=== PATIENT | female | born 1965 | race Caucasian/White ===

== ENCOUNTER 2019-04-13 08:29 | Day surgery (SDC) | payer MEDICARE ==
[2019-04-12 09:27] VITALS: BMI 31.9
[~2019-04-13 08:29] MED LIST: DEXAMETHASONE SOD PHOSPHATE 10 MG/ML 1 ML VIAL IV ONE; FAMOTIDINE 20 MG/2 ML VIAL IV ONE; HYDROmorphone 0.5 MG/0.5 ML SYRINGE IVP PRN; LACTATED RINGERS 1,000 ML IV SCH; LIDOCAINE 1% 20 ML VIAL (10MG/ML) FOR IV START INTRADERMA PRN; MIDAZOLAM 2 MG/2 ML VIAL IV PRN; ONDANSETRON 4 MG/2 ML VIAL IVP ONE; SCOPOLAMINE 1.5MG/72HR PATCH TRANSDERM ONE
[2019-04-13 09:53] LABS: Glucose,Whole Blood 103 mg/dL (75-99)
[2019-04-13] MEDS ORDERED: PROPOFOL 10 MG/ML 20 ML VIAL IV ONE (11:00)
[2019-04-13] MEDS ORDERED: MIDAZOLAM 2 MG/2 ML VIAL ONE (11:00)
[2019-04-13] MEDS ORDERED: LIDOCAINE 1% INJ 10MG/ML (20 ML MDV) ONE (11:00)
[2019-04-13] MEDS ORDERED: fentaNYL (PF) 50 MCG/ML 2 ML AMP ONE (11:00)
[2019-04-13] MEDS ORDERED: OFLOXACIN 0.3% OPHTH DROPS 5 ML BOTTLE BOTH EARS ONE (11:17)
[2019-04-13] MEDS ORDERED: LACTATED RINGERS 1,000 ML IV ONE (11:32)
--- NOTE | 2019-04-13 11:32 | P.OP ---
Date of Procedure: 04/20/19 Preoperative Diagnosis: Bilateral chronic otitis media Postoperative Diagnosis: Same Procedure(s) Performed: Left ventilation tube placement Right ventilation tube removal and replacement Anesthesia: VANDANA Surgeon: Gus Hager Estimated Blood Loss (ml): 0 Pathology: none sent Condition: stable Disposition: PACU Indications for Procedure: This is a 33-year-old black female whose had difficulties with otitis media for many years. She has history of ventilation tube placement with a right ventilation tube which is retained although she's had some issues with drainage left ear has had chronic middle ear effusion Operative Findings: Mucoid middle ear effusion on the left with extruding ventilation tube on the right Description of Procedure: The patient was brought in the operative suite and placed in a supine position. The patient underwent induction of general anesthesia with mask inhalation agents. The patient was prepped and draped in usual aseptic fashion with Zeiss microscope brought into position over the right ear. Cerumen was cleaned from external try canal. The ventilation tube was extruding and therefore was removed. There was some minimal purulence as well as mild granulation. The ear was irrigated with Betadine and rinsed clear with saline. A triune ventilation tube was placed through an anterior inferior myringotomy in radial fashion and Floxin Otic suspension was placed. Attention was turned to the left. The cerumen was cleaned from the external auditory canal and anteroinferior myringotomy was placed in radial fashion. The middle ear effusion was aspirated and a triune ventilation tube was placed in this ear. This was followed by O Floxin Otic suspension. The patient was allowed to emerge from anesthesia and the procedure well was transferred postoperative recovery area in satisfactory condition.
[2019-04-13 11:50] VITALS: TEMP 98
[2019-04-13 12:32] VITALS: RESP 16
[2019-04-13 12:45] VITALS: PULSE 77
[2019-04-13 12:57] VITALS: BP 168/94
== END 2019-04-13 13:12 | disposition home or self-care (01) ==
LOC: OR 08:29 → EEVIPCON 10:45 → OR 13:12
PROVIDERS: ATTEND Otolaryngology
DX: H65.492 Other chronic nonsuppurative otitis media, left ear (principal); T85.9XXA Unspecified complication of internal prosthetic device, implant and graft, initial encounter; H66.91 Otitis media, unspecified, right ear; I10 Essential (primary) hypertension; E78.5 Hyperlipidemia, unspecified; E11.9 Type 2 diabetes mellitus without complications; F20.9 Schizophrenia, unspecified; F41.9 Anxiety disorder, unspecified; F32.9 Major depressive disorder, single episode, unspecified; E78.00 Pure hypercholesterolemia, unspecified; Z88.0 Allergy status to penicillin; Z87.891 Personal history of nicotine dependence; Z79.899 Other long term (current) drug therapy; Z79.84 Long term (current) use of oral hypoglycemic drugs; Z82.5 Family history of asthma and other chronic lower respiratory diseases; Z82.49 Family history of ischemic heart disease and other diseases of the circulatory system; Z81.8 Family history of other mental and behavioral disorders
CPT/HCPCS: 81025; 69436; J2250; J1100; J2405; J2001; J3010; J2704

== ENCOUNTER → 2024-10-21 | Outpatient (CLI) | payer MEDICARE, OTHER ==
--- NOTE | 2024-10-21 10:35 | XR ---
EXAMINATION TYPE: XR Hip Complete RT DATE OF EXAM: 10/21/2024 10:29 AM COMPARISON: None. CLINICAL INDICATION: Female, 59 years old with history of M25.551 Pain rt hip, pain TECHNIQUE: XR Hip Complete RT XX views were obtained. FINDINGS: There is no acute fracture/dislocation evident. The joint space appears moderately narrowed. Acetabu lar spurring seen.. The overlying soft tissue appears unremarkable. IMPRESSION: No acute fracture or dislocation. [facility], , 10/21/2024 10:33 AM
== END | disposition home or self-care (01) ==
LOC: RADXRMAIN 10:14
PROVIDERS: ATTEND Internal Medicine Pulmonary Disease
DX: M25.551 Pain in right hip (principal)
CPT/HCPCS: 73502